=== PATIENT | female | born 1960 | race Two or more races ===

== ENCOUNTER → 2023-07-16 | Emergency (ER) | payer OTHER ==
[~2023-07-16] VITALS: Ht 154.9 cm; Wt 45.4 kg
[~2023-07-16] MED LIST: ADULT LOW DOSE81 M1 PO; ATORVASTATIN CA10 MG PO; CEPHALEXIN500 MG PO; GLIPIZIDE XL2.5 MG PO; GLUCOTROL XL5 MG PO; KETO10TA2 PO; LANTUS SOL100 UNIT/1 SQ; LANTUS SOL100 UNIT/1 SUBCUTANEO; LIPITOR20 MG PO; MUPIROCIN22 GM TOP; NEURONTIN300 MG PO; SYNTHROID88 MCG PO
== END | disposition left against medical advice (07) ==
LOC: ER 16:24
DX: Z53.21 Procedure and treatment not carried out due to patient leaving prior to being seen by health care provider (principal)